=== PATIENT | female | born 1975 | race Caucasian/White ===

== ENCOUNTER 2017-08-26 05:33 | Day surgery (SDC) | payer OTHER ==
[~2017-08-26] VITALS: Ht 165.1 cm; Wt 55.3 kg
[~2017-08-26 05:33] MED LIST: LO LOESTRIN FE1 EACH PO; NOHOMEMEDS
[2017-08-26 05:59] VITALS: BP 131/70
[2017-08-26] MEDS ORDERED: IBUPROFEN800 MG PO (08:24)
[2017-08-26 08:38] VITALS: BP 116/74
[2017-08-26 09:48] VITALS: BP 109/57
== END 2017-08-26 10:05 | disposition home or self-care (01) ==
LOC: SDC 05:33
PROC: 0UBC7ZX Excision of Cervix, Via Natural or Artificial Opening, Diagnostic (ICD-10-PCS; principal; 2017-08-26)
DX: N87.1 Moderate cervical dysplasia (principal); Z88.0 Allergy status to penicillin
CPT/HCPCS: 88307; 88342 TC; J1100; J1885; J2250; J2405; J3010; Q0175